=== PATIENT | female | born 1990 | race Caucasian/White ===

== ENCOUNTER 2019-09-21 16:03 | Emergency (ER) | payer OTHER ==
[~2019-09-21] VITALS: Ht 177.8 cm; Wt 68.0 kg
[2019-09-21 16:38] LABS: INFLUENZA A ANTIGEN Negative (Negative); INFLUENZA B ANTIGEN Negative (Negative)
[2019-09-21] MEDS ORDERED: ONDANSETRON HCL4 M2 PO (17:12)
[2019-09-21] MEDS ORDERED: PREDNISONE 20 M20 MG PO (17:12)
[2019-09-21 17:22] VITALS: BP 113/74
== END 2019-09-21 17:27 | disposition home or self-care (01) ==
LOC: M.ERS 16:03
PROVIDERS: Nurse Practitioner Family
DX: B34.9 Viral infection, unspecified (principal); F17.210 Nicotine dependence, cigarettes, uncomplicated; Z88.0 Allergy status to penicillin